=== PATIENT | male | born 1945 | race Caucasian/White ===

== ENCOUNTER → 2020-12-02 | Outpatient (CLI) | payer MEDICARE ==
--- NOTE | 2020-12-02 15:59 | PE ---
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 Images are reviewed on the computer in the coronal, a xial, and sagittal planes. Reconstructed rotating images are created on independent workstation and reviewed on the computer. A localization and attenuation correction CT is performed in conjunction with the PET scan. Dedicated PET/CT imaging of the neck. Blood glucose level equals 163. SCAN: Initial Scan FINDINGS: HEAD AND NECK: Asymmetric enlarged heterogeneous left submandibular mass measures 2.5 x 2.5 cm axial image 60 appears to be just posterior to the left submandibular gland at level of hyoid bone. max S UV is 6.78. Prominent but subcentimeter lymph node just posterior to this axial image 61. Remainder of the neck shows no suspicious hypermetabolic uptake. Primary oropharyngeal mass or neopla sm not clearly seen. Tiny roughly 4 to 5 mm hypermetabolic focus left lateral inferior tongue base ax ial image 52 has max SUV of 3.65. CHEST, MEDIASTINUM, AND HILAR REGION: No suspicious hypermetabolic uptake. ABDOMEN AND PELVIS: No suspicious hypermetabolic uptake. OSSEOUS STRUCTURES: No suspicious hypermetabolic uptake. OTHER CT: Mild to moderate three-vessel coronary artery calcification. Mild underlying emphysematous change. Cholecystectomy clips are present. Artifact from adjacent upper extremities is seen. Enlarged prostat e consistent with BPH. And mild to moderate disc space narrowing and spurring with vacuum disc phenom enon L3-L4 and L4-L5 levels. IMPRESSION: Abnormal uptake in the left submandibular lymph node. No metastatic disease is seen. Prim kris site of neoplasm not well visualized. Consider visualization inferior left lateral tongue base le josephine and/or oropharynx.
== END | disposition home or self-care (01) ==
LOC: RADPETMAIN 07:18
PROVIDERS: ATTEND Otolaryngology
DX: C76.0 Malignant neoplasm of head, face and neck (principal)
CPT/HCPCS: 78815; A9552

== ENCOUNTER → 2021-05-26 | Outpatient (CLI) | payer MEDICARE ==
--- NOTE | 2021-05-28 21:27 | PE ---
EXAMINATION TYPE: PET CT fusion skull to thigh DATE OF EXAM: 05/26/2021 COMPARISON: Prior PET/CT December 02, 2020 HISTORY: Head and neck cancer diagnosed November 25, 2020 TECHNIQUE: Following the intravenous administration of mCi of F-18 FDG, whole body images are perfo rmed from the skull base to the midthigh. Images are reviewed on the computer in the coronal, axial, and sagittal planes. Reconstructed rotating images are created on independent workstation and revie wed on the computer. A localization and attenuation correction CT is performed in conjunction with the PET scan. Dedicated PET/CT imaging of the neck is also performed. SCAN: Subsequent Scan FINDINGS: HEAD AND NECK: Prior visualized Asymmetric enlarged heterogeneous left submandibular mass now diffic ult to distinctly visualize, likely some residual tissue axial image 54 measuring approximately 2.2 x 1.0 cm decreased in size from prior study is currently ametabolic. No suspicious adjacent adenopathy current study. Mild uptake in right submandibular subcentimeter lymph nodes is nonspecific. No new hypermetabolic ad enopathy. Primary oropharyngeal mass or neoplasm not clearly seen similar to prior. CHEST, MEDIASTINUM, AND HILAR REGION: No new areas of suspicious hypermetabolic uptake. ABDOMEN AND PELVIS: No new areas of suspicious hypermetabolic uptake. OSSEOUS STRUCTURES: No new areas of suspicious hypermetabolic uptake. OTHER CT: Mild three-vessel coronary artery calcification. Mild underlying emphysematous change. Mild cardiomegaly. Cholecystectomy clips are present. Artifact from adjacent upper extremities is seen. Enlarged prostat e consistent with BPH. Mild to moderate disc space narrowing and spurring with vacuum disc phenomenon L3-L4 and L4-L5 levels. IMPRESSION: Complete positive treatment response left submandibular level. No definitive new areas of abnormal hypermetabolic uptake to suggest new metastatic malignancy.
== END | disposition home or self-care (01) ==
LOC: RADXRMAIN 10:47
PROVIDERS: ATTEND Internal Medicine Hematology & Oncology
DX: C08.0 Malignant neoplasm of submandibular gland (principal)
CPT/HCPCS: 78815; A9552

== ENCOUNTER → 2022-02-27 | Outpatient (CLI) | payer MEDICARE ==
[2022-02-27 10:47] LABS: Basophils # (A) 0.04 X 10*3/uL (0.00-0.10); Basophils % (A) 0.7 %; Eosinophils # (A) 0.23 X 10*3/uL (0.04-0.35); Eosinophils % (A) 4.2 %; HCT 49.3 % (39.6-50.0); HGB 16.5 g/dL (13.0-17.0); Immature Grans, Automated 0.7 %; Lymphocytes # (A) 1.52 X 10*3/uL (0.90-5.00); Lymphocytes % (A) 27.6 %; MCH 33.7 pg (27.0-32.0); MCHC 33.5 g/dL (32.0-37.0); MCV 100.6 fL (80.0-97.0); Mean Platelet Volume 9.5 fL (9.5-12.2); Monocytes # (A) 0.61 X 10*3/uL (0.20-1.00); Monocytes % (A) 11.1 %; NRBC Per 100 WBC 0 /100 WBCS (0.0-0.0); Neutrophils # (A) 3.07 X 10*3/uL (1.80-7.70); Neutrophils % (A) 55.7 %; Platelet Count 279 X 10*3/uL (140-440); RDW 13.5 % (11.5-14.5); WBC 5.51 X 10*3/uL (4.50-10.00)
[2022-02-27 11:07] LABS: ALT 29 U/L (10-49); AST 32 U/L (14-35); African American GFR (CKD) 75.2 (60.0-200.0); Albumin 4.6 g/dL (3.8-4.9); Albumin/Globulin Ratio 1.77 (1.60-3.17); Alkaline Phosphatase 61 U/L (41-126); BUN/Creat Ratio 15.36 Ratio (12.00-20.00); Blood Urea Nitrogen 16.9 mg/dL (9.0-27.0); Calcium 9.6 mg/dL (8.7-10.3); Carbon Dioxide 29.8 mmol/L (20.0-27.5); Chloride 101 mmol/L (96-109); Globulin 2.6 g/dL (1.6-3.3); Glucose 153 mg/dL (70-110); Non-African American GFR(CKD) 64.9 (60.0-200.0); Sodium 140 mmol/L (135-145); Total Protein 7.2 g/dL (6.2-8.2)
[2022-02-27 11:08] LABS: Chol/HDL Ratio 3.14 Ratio; LDL Cholesterol,Calculated 102.9 mg/dL (0.0-131.0); VLDL Calculation 15.68 mg/dL (5.00-40.00)
[2022-02-27 21:15] LABS: Urine Creatinine 93.3 mg/dL (39.0-259.0)
== END | disposition home or self-care (01) ==
LOC: LABWHC1 07:15
PROVIDERS: ATTEND Internal Medicine Geriatric Medicine
DX: E78.2 Mixed hyperlipidemia (principal); E11.65 Type 2 diabetes mellitus with hyperglycemia; N40.0 Benign prostatic hyperplasia without lower urinary tract symptoms; N18.9 Chronic kidney disease, unspecified
CPT/HCPCS: 36415; 80053; 80061; 82043; 82570; 83036; 84153; 85025

== ENCOUNTER → 2022-03-01 | Outpatient (CLI) | payer MEDICARE ==
[2022-03-01 10:14] LABS: African American GFR (CKD) >90 (>60 ml/min/1.73 sqM); Blood Urea Nitrogen 19 mg/dL (9-20); Non-African American GFR(CKD) 78 (>60 ml/min/1.73 sqM)
--- NOTE | 2022-03-01 11:13 | CT ---
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 Automated Exposure Control for Dose Reduction was Utilized. TECHNIQUE: CT scan of the thorax is performed without IV contrast. FINDINGS: LUNGS: Focal mild linear and slightly nodular scarring lateral right upper lobe axial image 25 is red emonstrated stable from initial PET/CT axial image 100. Focal mild linear scarring in both lung bases is again seen. No significant new greater than 5 mm pulmonary nodules or masses. There is no pleura l effusion or pneumothorax seen. The tracheobronchial tree is patent. MEDIASTINUM: Lack of IV contrast is noted to limit evaluation for mediastinal and especially hilar ad enopathy. There are no definitive greater than 1 cm hilar or mediastinal lymph nodes. No cardiomega ly or pericardial effusion is seen. Coronary artery calcification is redemonstrated. Enlarged main pu lmonary artery of 3.4 cm axial image 26 consistent with underlying pulmonary artery hypertension. The re is ascending aortic aneurysm measuring 4.4 cm adjacent to this. OTHER: Cholecystectomy clips are redemonstrated. Small low dense mass left adrenal gland axial image 62 consistent with benign lipid rich adenoma is redemonstrated. Some cortical thinning in both kidney s with few round small lesions, 1 being hyperdense axial image 69 favoring proteinaceous cyst is rede monstrated. Multilevel spurring in the thoracic spine redemonstrated. IMPRESSION: No suspicious new thoracic nodules or adenopathy to suggest metastatic disease.
--- NOTE | 2022-03-01 11:45 | CT ---
EXAMINATION TYPE: CT soft tissue neck w con DATE OF EXAM: 03/01/2022 HISTORY: Oropharynx cancer initially diagnosed in November 2020 COMPARISON: Prior PET/CT is May 26, 2021 and December 02, 2020 CT DLP: 759 mGycm. Automated Exposure Control for Dose Reduction was Utilized. TECHNIQUE: CT scan of the neck is performed with IV Contrast, patient injected with 100 ml mL of Iso daija 300, axial images are obtained, coronal and sagittal reformatted images are reviewed. FINDINGS: Airway: No gross abnormality seen. Parotid/submandibular glands: Asymmetric left parotid atrophy is redemonstrated. There is 10 x 7 mm o dayami circumscribed lesion inferior left parotid level axial image 30 likely corresponding to most rece nt PET/CT axial image 45 where was noted ametabolic perhaps treated adenopathy. Slight asymmetric atr ophy to the left submandibular gland is noted. No obvious recurrent mass at this level. There is prom inent but subcentimeter lymph nodes between the left submandibular gland in the carotid vessels on ax ial image 38 redemonstrated. There is better visualized fat planes at this level noted versus prior P ET/CT. Carotid/Vascular Structures: No significant abnormality. Osseous Structures: [id number] multilevel anterior spurring in the mid to lower cervical spin e . Moderate disc space narrowing C5-C6 and C6-C7 levels. Other: There is 4 mm right upper lobe nodule axial image 83 was present on prior PET CTs. IMPRESSION: No obvious new mass. No obvious new or enlarging greater than 1 cm adenopathy to suggest local neoplastic recurrence. Improved local subcutaneous edema from most recent prior PET/CT. Repeat PET/CT noted more sensitive to detect active neoplastic recurrence versus CT.
== END | disposition home or self-care (01) ==
LOC: RADCTMAIN 09:32
DX: C10.9 Malignant neoplasm of oropharynx, unspecified (principal); R60.9 Edema, unspecified; Z85.818 Personal history of malignant neoplasm of other sites of lip, oral cavity, and pharynx
CPT/HCPCS: 82565; 84520; 70491; 71250; 36415; Q9967

== ENCOUNTER → 2022-05-25 | Outpatient (CLI) | payer MEDICARE ==
--- NOTE | 2022-05-25 11:55 | CT ---
EXAMINATION TYPE: CT neck chest w con DATE OF EXAM: 05/25/2022 COMPARISON: Prior CT neck and chest March 01, 2022 and older studies. HISTORY: left sided lymph node removal. History of head and neck cancer. CT DLP: 1504 mGycm. Automated Exposure Control for Dose Reduction was Utilized. TECHNIQUE: CT scan of the neck and thorax are performed following with IV Contrast, patient injected with 125 mL of Isovue 300. FINDINGS: NECK: Airway: No gross abnormality seen. Parotid/submandibular glands: Asymmetric left parotid atrophy is redemonstrated. There is interval re moval of the 10 mm inferior left parotid circumscribed mass with some ill-defined fluid and fat stran ding and deep subcutaneous air focus at this level axial image 43 now present. Slight asymmetric atrophy to the left submandibular gland is redemonstrated. No obvious recurrent mas s at this level. There is prominent but subcentimeter lymph nodes between the left submandibular glan d and the carotid vessels on axial image 50 redemonstrated. This is not significantly changed from mo st recent CT. Carotid/Vascular Structures: No significant abnormality. Osseous Structures: [id number] multilevel anterior spurring in the mid to lower cervical spin e . Moderate disc space narrowing C5-C6 and C6-C7 levels is redemonstrated. CHEST: LUNGS: Focal mild linear and slightly nodular scarring lateral right upper lobe axial image 25 is red emonstrated stable from prior study. Approximate 4 mm right upper lobe nodule axial image 20 and is f airly stable in retrospect from prior study. Background mild underlying emphysematous change is redem onstrated. Focal mild linear scarring in both lung bases is again seen. No significant new greater th an 5 mm pulmonary nodules or masses. Slight nodular thickening along the right lung fissure axial criselda ge 40 centrally is stable from prior. There is no pleural effusion or pneumothorax seen. The tracheo bronchial tree is patent. MEDIASTINUM: Lack of IV contrast is noted to limit evaluation for mediastinal and especially hilar ad enopathy. There are no definitive greater than 1 cm hilar or mediastinal lymph nodes. No cardiomega ly or pericardial effusion is seen. Coronary artery calcification is redemonstrated. Enlarged main pu lmonary artery is redemonstrated. There is ascending aortic aneurysm measuring 4.4 cm redemonstrated. OTHER: Cholecystectomy clips are redemonstrated. Small low dense mass left adrenal gland axial image 60 consistent with benign lipid rich adenoma is redemonstrated. Some cortical thinning in both kidney s with few round small lesions, 1 being hyperdense left kidney axial image 66 favoring proteinaceous cyst is redemonstrated. Multilevel spurring in the thoracic spine redemonstrated. IMPRESSION: Interval surgical treatment of the suspicious inferior left parotid 1.0 cm nodule or poss ible lymph node. No suspicious new or enlarging nodules or lymph nodes to suggest new metastatic cale gnancy.
== END | disposition home or self-care (01) ==
LOC: RADCTMAIN 09:48
PROVIDERS: ATTEND Radiology Radiation Oncology
DX: C77.0 Secondary and unspecified malignant neoplasm of lymph nodes of head, face and neck (principal); C02.4 Malignant neoplasm of lingual tonsil; Z98.52 Vasectomy status; Z92.3 Personal history of irradiation; Z79.899 Other long term (current) drug therapy; Z87.891 Personal history of nicotine dependence
CPT/HCPCS: 82565; 84520; 70491; 71260; 36415; Q9967

== ENCOUNTER → 2022-10-16 | Outpatient (CLI) | payer MEDICARE ==
[2022-10-16 10:44] LABS: African American GFR (CKD) 76 (>60 ml/min/1.73 sqM); Blood Urea Nitrogen 18 mg/dL (9-20); Non-African American GFR(CKD) 66 (>60 ml/min/1.73 sqM)
--- NOTE | 2022-10-16 12:38 | CT ---
EXAMINATION TYPE: CT neck chest w con CT DLP: 1789 mGycm, Automated exposure control for dose reduction was used. DATE OF EXAM: 10/16/2022 11:34 AM COMPARISON: 05/25/2022. CLINICAL INDICATION:Male, 77 years old with history of C01 CANCER OF BASE OF TONGUE; TECHNIQUE: Standard enhanced CT of the neck and chest. Axial sections with coronal and sagittal refo rmats were obtained. Contrast used: (none if empty) Oral contrast used: (none if empty) FINDINGS: Brain: Visualized portions are grossly unremarkable. Orbits: Bilaterally aphakia. Sinuses: Grossly unremarkable. Spaces of the neck: No suspicious masses. The oral mucosa appear symmetric. The base of the tongue ap pears symmetrical. Musculoskeletal: No acute osseous pathology. Lymph nodes: There is a new prominent right neck lymph node measuring up to 11 mm in short axis. Vascular structures: Visualized major arteries are patent without evidence of aneurysm. Thoracic Inlet/airway: Airway is patent. The lung apices are clear. Soft tissues/Thyroid: Thyroid and remainder of the soft tissues are unremarkable. Other: none. LUNGS/ PLEURA: Scattered peripheral groundglass opacities throughout the lungs. No evidence of focal consolidation, pneumothorax or pleural effusion. Right lateral midlung nodular densities are stable. AIRWAY: Patent and unremarkable. HEART: Size within normal limits. Atherosclerosis of the arterial vasculature. There is coronary susan ry MEDIASTINUM: No gross evidence of adenopathy. VASCULATURE: No aortic aneurysm. There is a 4 vessel aortic arch. MUSCULOSKELETAL: No acute osseous abnormalities SOFT TISSUES/LYMPH NODES: Unremarkable. LOWER NECK: No significant findings. UPPER ABDOMEN: Adrenal gland nodules bilaterally are stable. Stable left renal hyperdense cyst withou t FDG activity on prior PET measuring 11 mm. The gallbladder surgically absent. IMPRESSION 1. New right neck lymph node measuring up to 11 mm in short axis at the level of the hyoid bone. Con employment coordinator follow-up PET/CT. Findings could relate to history cancer. The oral mucosa appears relatively s ymmetric. 2. Scattered, groundglass opacities throughout the lungs are new. Correlate for infectious/inflammat ory process such as atypical pneumonia. 3. Stable nodular densities the adrenal glands. 4. Stable left renal hyperdense cyst without FDG activity on prior PET
== END | disposition home or self-care (01) ==
LOC: RADCTMAIN 10:02
PROVIDERS: ATTEND Otolaryngology
DX: C01 Malignant neoplasm of base of tongue (principal); N28.1 Cyst of kidney, acquired; R91.8 Other nonspecific abnormal finding of lung field; J98.4 Other disorders of lung; Z85.810 Personal history of malignant neoplasm of tongue
CPT/HCPCS: 82565; 84520; 70491; 71260; 36415; Q9967

== ENCOUNTER → 2022-11-22 | Outpatient (CLI) | payer MEDICARE ==
[2022-11-22 16:42] LABS: ALT 31 U/L (10-49); AST 33 U/L (14-35); Albumin 4.4 d/dL (3.8-4.9); Albumin/Globulin Ratio 1.57 Ratio (1.60-3.17); Alkaline Phosphatase 59 U/L (41-126); BUN/Creat Ratio 13.27 Ratio (12.00-20.00); Blood Urea Nitrogen 14.6 mg/dL (9.0-27.0); Calcium 9.6 mg/dL (8.7-10.3); Carbon Dioxide 25.7 mmol/L (21.6-31.8); Chloride 100 mmol/L (96-109); Chol/HDL Ratio 2.41 Ratio; Globulin 2.8 d/dL (1.6-3.3); Glucose 143 mg/dL (70-110); Potassium 4.7 mmol/L (3.5-5.5); Sodium 138 mmol/L (135-145); Total Bilirubin 0.6 mg/dL (0.3-1.2); Total Protein 7.2 d/dL (6.2-8.2); VLDL Calculation 13.78 mg/dL (5.00-40.00)
[2022-11-22 17:06] LABS: HCT 45.6 % (39.6-50.0); HGB 15.5 d/dL (13.0-17.0); MCH 33.1 pg (27.0-32.0); MCV 97.4 FL (80.0-97.0); NRBC Per 100 WBC 0 X 10*3/uL (0.00-0.01); Platelet Count 288 X 10*3/uL (140-440); RBC 4.68 X 10*6/uL (4.40-5.60); RDW 14.1 % (11.5-14.5); WBC 6.12 X 10*3/uL (4.50-10.00)
== END | disposition home or self-care (01) ==
LOC: LABWHC1 08:19
PROVIDERS: ATTEND Internal Medicine Geriatric Medicine
DX: N18.9 Chronic kidney disease, unspecified (principal); E11.65 Type 2 diabetes mellitus with hyperglycemia; E11.22 Type 2 diabetes mellitus with diabetic chronic kidney disease
CPT/HCPCS: 36415; 80053; 80061; 83036; 84443; 85027

== ENCOUNTER → 2022-12-26 | Outpatient (CLI) | payer MEDICARE ==
[2022-12-26 10:07] LABS: African American GFR (CKD) 85 (>60 ml/min/1.73 sqM); Blood Urea Nitrogen 20 mg/dL (9-20); Non-African American GFR(CKD) 73 (>60 ml/min/1.73 sqM)
--- NOTE | 2022-12-26 11:14 | CT ---
EXAMINATION TYPE: CT soft tissue neck w con CT DLP: 691.60 mGycm, Automated exposure control for dose reduction was used. DATE OF EXAM: 12/26/2022 10:46 AM COMPARISON: CT neck chest 10/16/2022, 05/25/2022, CT neck 03/01/2022, PET/CT 05/26/2021. CLINICAL INDICATION:Male, 77 years old with history of C76.0 HEAD NECK CA, Z03.89 suspect mets; PHH, Head/neck cancer cancer, suspect mets TECHNIQUE: Standard enhanced CT of the neck following intravenous administration of 100 cc of Isovue 300. Axial sections with coronal and sagittal reformats were obtained. FINDINGS: Brain: Visualized portions are grossly unremarkable. Orbits: Bilateral aphakia. Sinuses: Grossly unremarkable. Suprahyoid Neck: The oropharynx, oral cavity, parapharyngeal and retropharyngeal spaces are clear and symmetric. The nasopharynx is unremarkable. Infrahyoid Neck: The larynx, hypopharynx, and supraglottic area are clear and symmetric. Parotid Glands: Right parotid gland appears unremarkable. Atrophy/postsurgical change of the left par otid gland again demonstrated. Submandibular Glands: Right submandibular gland appears unremarkable. Atrophy of the left submandibul ar gland again demonstrated. Musculoskeletal: No acute osseous pathology. Degenerative changes of the cervical spine. No aggressiv e osseous lesion. Lymph nodes: Stable enlarged right submandibular lymph node node at level of the high bone measuring 1.1 cm short axis (series 3, image 54). Decreased left subareolar lymph node measuring 0.5 cm in anais rt axis, previously 0.6 cm short axis (series 3, image 55). No new or enlarging lymph nodes. Vascular structures: Visualized major arteries are patent without evidence of aneurysm. Thoracic Inlet/airway: Airway is patent. The lung apices are clear. Mild centrilobular emphysematous changes. Soft tissues/Thyroid: Thyroid and remainder of the soft tissues are unremarkable. Other: none. IMPRESSION 1. Stable right submandibular lymph node measuring 1.1 cm short axis with decreased size of left subm ental lymph node measuring 0.5 cm short axis, previously 0.6 cm. No new or enlarging lymph nodes. 2. Post treatment changes of the inferior left parotid gland without definitive evidence for local re currence.
== END | disposition home or self-care (01) ==
LOC: RADCTMAIN 09:24
PROVIDERS: ATTEND Internal Medicine Hematology & Oncology
DX: Z03.89 Encounter for observation for other suspected diseases and conditions ruled out (principal); C76.0 Malignant neoplasm of head, face and neck; K11.8 Other diseases of salivary glands; R59.0 Localized enlarged lymph nodes
CPT/HCPCS: 82565; 84520; 70491; 36415; Q9967

== ENCOUNTER → 2023-03-12 | Outpatient (CLI) | payer MEDICARE ==
[2023-03-12 12:39] LABS: African American GFR (CKD) 84 (>60 ml/min/1.73 sqM); Blood Urea Nitrogen 25 mg/dL (9-20); Non-African American GFR(CKD) 72 (>60 ml/min/1.73 sqM)
--- NOTE | 2023-03-12 14:50 | CT ---
EXAMINATION TYPE: CT neck chest w con DATE OF EXAM: 03/12/2023 COMPARISON: 12/26/2022 HISTORY: Hx throat ca CT DLP: 1686.20 mGycm CONTRAST: Patient injected with 100 mL of Isovue 370. TECHNIQUE: Axial images at 3 mm thick sections. Reconstructed images in the coronal plane and sagitt al plane are reviewed. FINDINGS: Limited CT sections are obtained the lung apices. The lung apices appear clear. CT neck: The torus tubarius and fossa of Rosenmuller are normal. Manufacturing Weaver spaces are normal. Para nasal sinuses and mastoid air cells are clear. Left parotid gland is resected. Right parotid gland appears unremarkable. Right submandibular gland i s unremarkable. Left submandibular gland may have some mild atrophy. Parapharyngeal spaces are normal . No suspicious adenopathy is evident. There are a few scattered small lymph nodes present bilateral ly. The hypopharynx appears within normal limits. Epiglottis appears normal. Vocal cord level appears sym metrical. Prevertebral space is normal. Anterior vertebral body spurring is noted within the cervical spine. Thyroid as visualized is normal. IMPRESSION: 1. No suspicious acute changes to suggest recurrent or metastatic throat cancer. EXAMINATION TYPE: CT neck chest w con DATE OF EXAM: 03/12/2023 COMPARISON: 12/30/2022 HISTORY: Hx throat ca CT DLP: 1686.20 mGycm, Automated exposure control for dose reduction was used. CONTRAST: Performed injected with 100 mL of Isovue 370. TECHNIQUE: Axial images were obtained at 5 mm thick sections. Reconstructed images are reviewed on [employer] computer in the coronal plane. FINDINGS: Portion of the thyroid visualized is normal. Couple of tiny stable nodules appear to be within the major fissure on the right, series 6 image 24. No suspicious lung nodules evident. No consolidations or infiltrates. No enlarged mediastinal or hilar adenopathy is evident. The ascending aorta diameter at the level o f the main pulmonary artery is 4.3 cm. The main pulmonary artery diameter at the bifurcation is 3.[address] sections are obtained through the upper abdomen. Abdomen is essentially unremarkable. IMPRESSION: 1. Ascending thoracic aortic aneurysm measuring 4.3 cm. 2. No suspicious changes to suggest metastatic disease.
== END | disposition home or self-care (01) ==
LOC: RADCTMAIN 12:08
PROVIDERS: ATTEND Internal Medicine Hematology & Oncology
DX: I71.21 Aneurysm of the ascending aorta, without rupture (principal); C76.0 Malignant neoplasm of head, face and neck; E11.9 Type 2 diabetes mellitus without complications; I10 Essential (primary) hypertension; Z71.3 Dietary counseling and surveillance
CPT/HCPCS: 82565; 84520; 70491; 71260; 36415; Q9967

== ENCOUNTER 2023-05-08 08:59 | Day surgery (SDC) | payer MEDICARE ==
--- NOTE | 2023-05-06 14:17 | P.HPOR ---
History of Present Illness H&P Date: 05/06/23 Subjective: This is a 77 year old male that presents today for initial evaluation regarding a one month history of an inability to extend the small finger. He denies any injury or inciting event. He states it is not painful but it often gets in the way when trying to put his hands in his pockets or trying to work or do any type of manual labor. He notes pain with twisting motion of the wrist at the dorsum of the hand intermittently. Physical Examination: RUE: AIN/PIN/Radial/Ulnar/Median motor intact. Radial/Ulnar/Median SILT. 2+/4 Radial/Ulnar pulses palpated. 5/5 APB, 5/5 FDI. Negative Finkelsteins, negative CMC grind, negative Durkan's compression. Unable to actively extend the small finger against gravity. 30 extension leg of the MCP joint of the small finger. Imaging: X-Rays of the right hand 3V taken in office today demonstrates advanced degenerative changes at the DRUJ, SLAC wrist deformity. Advanced degenerative changes at the index and middle finger MCP joints. Spurring/osteophyte formation present over dorsal DRUJ. 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 We discussed he likely has rupture of the small finger extensor tendon due to dorsal bone spurring from his severe distal radioulnar joint arthritis. We discussed this would likely require a tendon transfer and addressing the DRUJ arthritis with a distal ulna resection to prevent recurrence.The patient was agreeable with this plan. He is scheduled for a right hand extensor tendon tendon transfer and distal ulna resection. Risks and benefits of surgery including bleeding, infection, damage to surrounding tissue, need for further surgery, residual numbness were discussed and the patient wished to go forward with surgery. -Juan David Johnson DO Orthopedic Hand/Upper Extremity Surgeon Past Medical History Past Medical History: Cancer, Diabetes Mellitus, GERD/Reflux, Hyperlipidemia, Hypertension, Renal Disease, Sleep Apnea/CPAP/BIPAP Additional Past Medical History / Comment(s): oropharyngeal cancer diagnosis - July 2021, had chemo and radation. kidney stones, no cpap since cancer History of Any Multi-Drug Resistant Organisms: None Reported Past Surgical History: Adenoidectomy, Appendectomy, Cholecystectomy, Tonsillectomy Additional Past Surgical History / Comment(s): oropharyngeal surgery x2 for Cancer, vasectomy, Past Anesthesia/Blood Transfusion Reactions: No Reported Reaction Additional Past Anesthesia/Blood Transfusion Reaction / Comment(s): slow to wake up Smoking Status: Never smoker - Past Family History Father Family Medical History: Cancer Additional Family Medical History / Comment(s): lung cancer Medications and Allergies Home Medications Medication Instructions Recorded Confirmed Type Citalopram Hydrobromide 40 mg PO DAILY 04/04/22 05/03/23 History [Citalopram HBr] Furosemide [Lasix] 20 mg PO DAILY 04/04/22 05/03/23 History Insulin NPH Hum/Reg Insulin Hm 1 unit SQ DAILY 04/04/22 05/03/23 History [Novolin 70-30 100 Unit/ml Vial] Meloxicam [Mobic] 7.5 mg PO DAILY 04/04/22 05/03/23 History Omeprazole [PriLOSEC] 20 mg PO DAILY 04/04/22 05/03/23 History Potassium Chloride [Klor-Con M10] 10 meq PO DAILY 04/04/22 05/03/23 History Tamsulosin [Flomax] 0.4 mg PO DAILY 04/04/22 05/03/23 History lisinopriL 40 mg PO DAILY 04/04/22 05/03/23 History Atorvastatin [Lipitor] 10 mg PO HS 05/03/23 05/03/23 History Magensium 500 mg PO DAILY 05/03/23 05/03/23 History Multivitamins, Thera [Multivitamin 1 tab PO DAILY 05/03/23 05/03/23 History (formulary)] Pilocarpine [Salagen] 1 tab PO DAILY 05/03/23 05/03/23 History Prevagen 1 tab PO DAILY 05/03/23 05/03/23 History Allergies Allergy/AdvReac Type Severity Reaction Status Date / Time nickel Allergy Rash/Hives Verified 05/03/23 09:33 Physical Examination Osteopathic Statement: *. No significant issues noted on an osteopathic structural exam other than those noted in the History and Physical/Consult.
[~2023-05-08 08:59] MED LIST: DEXAMETHASONE SOD PHOSPHATE 4 MG/ML 1 ML VIAL IV ONE; LACTATED RINGERS 1,000 ML IV SCH
[2023-05-08] MEDS: LACTATED RINGERS 1,000 ML IV ONE ×3 (10:09→12:27)
[2023-05-08 10:10] LABS: Glucose,Whole Blood 117 mg/dL (70-110)
[2023-05-08] MEDS ORDERED: ONDANSETRON 4 MG/2 ML VIAL ONE (10:13)
[2023-05-08] MEDS: MIDAZOLAM 2 MG/2 ML VIAL IVP ONE ×2 (10:22→10:24)
[2023-05-08] MEDS: ONDANSETRON 4 MG/2 ML VIAL IVP ONE (10:33)
--- NOTE | 2023-05-08 10:39 | P.ANPRN ---
Procedure Note - Anesthesia - Nerve Block Performed Right Infraclavicular Single Date of Procedure: 05/08/23 Procedure Start Time: : Procedure Stop Time: : Location of Patient: PreOp Indication: Requested by Surgeon Specifically requested for management of pain by DrElma: Juan David Johnson Sedation Type: Sedate with meaningful contact maintained Preparation: Sterile Prep Position: Supine Needle Gauge: 21 Ultrasound used to visualize needle placement: Yes Ultrasound used to observe medication spread: Yes Injectate: 0.5% Ropivacaine (see comment for volume) Blood Aspirated: No Pain Paresthesia on Injection Noted: No Resistance on Injection: Normal Image Stored and Saved: Yes Events: Uneventful and Well Tolerated
[2023-05-08] MEDS ORDERED: MIDAZOLAM 2 MG/2 ML VIAL ONE (10:44)
[2023-05-08] MEDS ORDERED: fentaNYL (PF) 50 MCG/ML 2 ML AMP ONE (10:44)
[2023-05-08] MEDS ORDERED: ROPIVACAINE 5 MG/ML 30 ML VIAL ONE (10:44)
[2023-05-08] MEDS ORDERED: PROPOFOL 10 MG/ML 20 ML VIAL IV ONE (10:44)
[2023-05-08] MEDS ORDERED: LIDOCAINE 1% INJ 10MG/ML (20 ML MDV) ONE (10:44)
[2023-05-08] MEDS ORDERED: ePHEDrine 50 MG/ML 1 ML VIAL ONE (10:44)
[2023-05-08] MEDS ORDERED: DEXAMETHASONE SOD PHOSPHATE 4 MG/ML 1 ML VIAL ONE (10:44)
[2023-05-08] MEDS ORDERED: PHENYLEPHRINE 10 MG/ML VIAL ONE (10:44)
[2023-05-08 13:24] VITALS: TEMP 96.9
[2023-05-08] MEDS: HYDROmorphone 0.5 MG/0.5 ML SYRINGE IVP PRN (13:30)
[2023-05-08 14:23] LABS: Glucose,Whole Blood 145 mg/dL (70-110)
[2023-05-08 15:11] VITALS: BP 130/76; PULSE 80; RESP 18
--- NOTE | 2023-05-08 17:35 | P.OP ---
Date of Procedure: 05/08/23 Preoperative Diagnosis: 1.) Right wrist DRUJ arthritis 2.) Right Extensor digiti minimi tendon rupture at level of wrist 3.) Right Extensor digitorum communis tendon to the right small finger rupture at the level of the wrist 4.) Right Extensor digitorum communis tendon to the right ring finger partial attritional rupture at the level of the wrist. 5.) Right Extensor tenosynovitis Postoperative Diagnosis: 1.) Right wrist DRUJ arthritis 2.) Right Extensor digiti minimi tendon rupture at level of wrist 3.) Right Extensor digitorum communis tendon to the right small finger rupture at the level of the wrist 4.) Right Extensor digitorum communis tendon to the right ring finger partial attritional rupture at the level of the wrist. 5.) Right Extensor tenosynovitis Procedure(s) Performed: 1.) Right wrist distal ulna resection (02824) 2.) Right Extensor indicis proprious to extensor digiti minimi tendon transfer at level of carpal/metacarpal area (46765) 3.) Right Extensor digitorum communis tendon to the right small finger tendon transfer to right ring finger extensor digitorum communis to ring finger at level of carpal/metacarpal area (62668) 4.) Right Extensor digitorum communis tendon to the right ring finger partial attritional rupture direct repair at level of carpal/metacarpal area (70233) 5.) Right Extensor tenosynovectomy of 4th dorsal compartment (86603) 6.) Right wrist extensor carpi ulnaris tendon transfer to distal ulnar for distal ulna stump stabilization (20244) Anesthesia: regional Surgeon: Juan David Johnson Hay Rake Operator #1: Michi Peñaloza Estimated Blood Loss (ml): 30 Pathology: none sent Condition: stable Disposition: PACU Description of Procedure: This is a 77 year old male who presents today for surgical intervention for severe right DRUJ arthritis causing multiple attritional extensor tendon ruptures. Risks and benefits of surgery were discussed with the patient including bleeding, damage to surrounding tissue, infection, need for further surgery as well as risks of anesthesia including pulmonary embolism and even and the patient wished to proceed with surgical intervention. The patient was seen in the pre-operative area by myself. Consent and H&P were completed and updated. The correct extremity was marked in the pre-operative area by myself and all other questions were answered. Operative Narrative: The patient was brought to the operating room by the department of иван gan. They remained on the portable stretcher and a rolling hand table was brought to the side of the operative extremity. Pre-operative time out was performed indicating the correct patient, procedure and laterality. All in the room agreed. Pre-operative antibiotics were given prior to skin incision. The patient was then drifted off to sleep by the department of anesthesia. A nonsterile tourniquet was then applied to the operative extremity and the right upper extremity was then prepped and draped in normal sterile fashion. The operative extremity was the exsanguinated with an esmarch bandage and the tourniquet was inflated to 250mmHg. A longitudinal incision was made over the dorsal ulnar aspect overlying the ulnar head. Blunt dissection was taken down through subcutaneous tissues taking care to provide protection to the dorsal ulnar sensory branch nerves. The ECU tendon sheath was then opened to reveal the distal ulnar head which appeared very arthritic with large sharp dorsal osteophytes present. Rufina retractors were placed both ulnarly and radially and a microsaggital saw was used to resect the distal 2cm's of the ulnar head which was then excised. Attention was then d rawn to the ECU tendon. A distally based strip of the ECU tendon was made with a 15 blade scalpel approximately 5cm in length. A 2.7mm drill bit was then used to make a tunnel through the medullary canal and out the dorsal radial portion of the ulnar stump. The distally based ECU tendon strip was then transferred and tunneled through the drill hole and then shuttled back distally and sutured to itself with 2-0 ethibond suture to stabilize the distal ulna to prevent radial translation/impingement. The wound was then irrigated thoroughly and the periosteal sleeve over the ulna was closed with monocryl suture. Attention was then drawn distally and radially. The Longitudinal incision was extended distally towards the small finger MCP joint. Dissection was then carried radially subcutaneously to reveal extensive hypertrophic extensor tenosynovial tissue which was present around all of the fourth dorsal extensor compartment tendons. Extensive tenosynovectomy was performed of the fourth do rsal compartment with 15 blade scapel. Further dissection revealed that there was complete attritional rupture of the extensor digiti minimi tendon, the extensor digitorum communis tendon to the small finger, and a 40% with partial attritional rupture of the extensor digitorum communis tendon to the ring finger. 2-0 ethibond suture was used to perform a direct repair of the ring finger EDC tendon to the remaining intact 60% with multiple interrupted figure of 8 sutures followed by a running stitch to complete the EDC to the ring finger tendon repair. The EDC to the small finger distally based tendon end was freshly cut and then a pulvertaft weave was performed to transfer the EDC to the small finger to the neighboring EDC to the ring finger tendon with appropriate tension. This was secured with 3 pulvertaft weaves and held with multiple interrupted 2-0 ethibond sutures. Attention was then brought to the MCP joint of the index finger. A transverse incision was made just proximal to the MCP joint. The extensor indicis proprious tendon was identified just ulnar to the EDC to the index finger tendon. The EIP tendon was then transversely transected with 15 blade scapel and junctura te ndinae attatchments were also released to allow for tendon excursion for the transfer. The EIP tendon was then tunneled ulnarly and a connected to the distal stump of the extensor digiti minimi tendon in a 3 pass pulvertaft weave secured with multiple figure of 8 2-0 ethibond sutures under good tension with the finger fully and slightly hyperextended in anticipation of the repair stretching out in the following weeks. The resting posture of the hand was now restored with finger extension with no lag of the small finger. The wound was then irrigated with sterile saline. Bovie Cautery was used for meticulous hemostasis. Skin closure was performed with 3-0 monocryl followed by skin closure with 4-0 nylon suture. Sterile dressing consisting of adaptic, 4x4s, and a volar and dorsal plaster splint was applied. Tourniquet was let down and the hand had immediate perfusion. The patient was then woken by the department of anesthesia and transferred to PACU in stable condition. Michi HASTINGS was present for the case and assisted in major portions of the operation including protection of vital neurovascular structures with retracting and manipulation of the extremity and assistance in tensioning the tendon transfer. Juan David Johnson DO Orthopedic Hand/Upper Extremity Surgeon
== END 2023-05-08 15:27 | disposition home or self-care (01) ==
LOC: OR 08:59
PROVIDERS: ATTEND Orthopaedic Surgery Hand Surgery
DX: M19.031 Primary osteoarthritis, right wrist (principal); E11.9 Type 2 diabetes mellitus without complications; E78.5 Hyperlipidemia, unspecified; G47.33 Obstructive sleep apnea (adult) (pediatric); I10 Essential (primary) hypertension; K21.9 Gastro-esophageal reflux disease without esophagitis; Z79.1 Long term (current) use of non-steroidal anti-inflammatories (NSAID); Z79.4 Long term (current) use of insulin; Z85.818 Personal history of malignant neoplasm of other sites of lip, oral cavity, and pharynx; Z90.49 Acquired absence of other specified parts of digestive tract; Z79.899 Other long term (current) drug therapy
CPT/HCPCS: 64415; 25116; 26480; 26410; 26474; J2250; J1100; J0690; J2405; J2001; J3010; J2795; J2704; J1170; J2371

== ENCOUNTER → 2023-12-24 | Outpatient (CLI) | payer MEDICARE ==
--- NOTE | 2023-12-24 10:43 | CT ---
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 Reconstructed images are reviewed on [employer] computer in the coronal plane. Contrast used: mL of , (none if empty) Oral contrast used: (none if empty) CT DLP: 604.00 mGycm, Automated exposure control for dose reduction was used. FINDINGS: Portion of the thyroid visualized is normal. No suspicious lung nodules or focal infiltrates are present. Tracheobronchial tree appears normal wit hin the [id number] No enlarged mediastinal or hilar adenopathy is evident. The ascending aorta diameter at the level o f the main pulmonary artery is 4.6 cm. The main pulmonary artery diameter at the bifurcation is 3.[address] sections are obtained through the upper abdomen. Abdomen is essentially unremarkable. IMPRESSION: 1. No suspicious changes to suggest metastatic disease within the chest. [facility], , 12/24/2023 10:40 AM
== END | disposition home or self-care (01) ==
LOC: RADCTMAIN 09:43
PROVIDERS: ATTEND Internal Medicine Hematology & Oncology
DX: C76.0 Malignant neoplasm of head, face and neck (principal); E11.9 Type 2 diabetes mellitus without complications; I10 Essential (primary) hypertension; Z71.3 Dietary counseling and surveillance
CPT/HCPCS: 71250

== ENCOUNTER → 2024-02-29 | Outpatient (CLI) | payer MEDICARE ==
[2024-02-29 14:53] LABS: Basophils # (A) 0.03 X 10*3/uL (0.00-0.10); Basophils % (A) 0.6 %; Eosinophils # (A) 0.24 X 10*3/uL (0.04-0.35); HCT 45.7 % (39.6-50.0); HGB 15.6 g/dL (13.0-17.0); Lymphocytes # (A) 1.19 X 10*3/uL (0.90-5.00); Lymphocytes % (A) 24.7 %; MCH 33.1 pg (27.0-32.0); MCHC 34.1 g/dL (32.0-37.0); Mean Platelet Volume 9.5 FL (9.5-12.2); Monocytes # (A) 0.54 X 10*3/uL (0.20-1.00); Monocytes % (A) 11.2 %; NRBC Per 100 WBC 0 X 10*3/uL (0.00-0.01); Neutrophils # (A) 2.81 X 10*3/uL (1.80-7.70); Neutrophils % (A) 58.3 %; Platelet Count 240 X 10*3/uL (140-440); RBC 4.71 X 10*6/uL (4.40-5.60); RDW 13.3 % (11.5-14.5); WBC 4.82 X 10*3/uL (4.50-10.00)
[2024-02-29 15:19] LABS: ALT 28 U/L (10-49); AST 33 U/L (14-35); Albumin 4.2 g/dL (3.8-4.9); Albumin/Globulin Ratio 1.75 Ratio (1.60-3.17); Alkaline Phosphatase 59 U/L (41-126); Blood Urea Nitrogen 28.8 mg/dL (9.0-27.0); Calcium 9.1 mg/dL (8.7-10.3); Carbon Dioxide 26.9 mmol/L (21.6-31.8); Chloride 99 mmol/L (96-109); Chol/HDL Ratio 2.55 Ratio; Globulin 2.4 g/dL (1.6-3.3); Glucose 145 mg/dL (70-110); LDL Cholesterol,Calculated 64.3 mg/dL (0.0-131.0); Potassium 4.4 mmol/L (3.5-5.5); Sodium 144 mmol/L (135-145); T4, Free (Free Thyroxine) 1.05 ng/dL (0.80-1.80); Total Bilirubin 0.6 mg/dL (0.3-1.2); Total Protein 6.6 g/dL (6.2-8.2); Uric Acid 6.6 mg/dL (3.7-8.7); VLDL Calculation 11.14 mg/dL (5.00-40.00)
[2024-02-29 18:57] LABS: Microalbumin Creatinine Ratio <12 mg/g Cr (0-30); Urine Creatinine 98.9 mg/dL (39.0-259.0)
== END | disposition home or self-care (01) ==
LOC: LABWHC1 07:52
PROVIDERS: ATTEND Internal Medicine Geriatric Medicine
DX: Z00.00 Encounter for general adult medical examination without abnormal findings (principal); E11.22 Type 2 diabetes mellitus with diabetic chronic kidney disease; E78.2 Mixed hyperlipidemia; E03.9 Hypothyroidism, unspecified; N18.2 Chronic kidney disease, stage 2 (mild)
CPT/HCPCS: 36415; 80053; 80061; 82043; 82570; 83036; 84439; 84443; 84550; 85025

== ENCOUNTER → 2024-06-29 | Outpatient (CLI) | payer MEDICARE ==
[2024-06-29 12:33] LABS: African American GFR (CKD) 78 (>60 ml/min/1.73 sqM); Blood Urea Nitrogen 27 mg/dL (9-20); Non-African American GFR(CKD) 67 (>60 ml/min/1.73 sqM)
--- NOTE | 2024-06-29 13:16 | CT ---
EXAMINATION TYPE: CT neck chest w con CT DLP: 2014.6 mGycm, Automated exposure control for dose reduction was used. DATE OF EXAM: 06/29/2024 1:00 PM COMPARISON: CT chest 12/24/2023, 03/01/2022, CT neck chest 03/12/2023, CT soft tissue neck 12/26/2022, 01/2023, CT neck chest 10/16/2022, 05/25/2022, PET/CT 05/26/2021, 12/02/2020. CLINICAL INDICATION:Male, 78 years old with history of Z98.890 OTHER SPECIFIED POSTPROCEDURAL STATES; , neck ca TECHNIQUE: Standard enhanced CT of the neck and chest. Axial sections with coronal and sagittal refo rmats were obtained. Contrast used:100 mL of Isovue 300 with IV Contrast Oral contrast used: None FINDINGS: Brain: Visualized portions are grossly unremarkable. Orbits: Bilateral aphakia. Sinuses: Grossly unremarkable. Suprahyoid Neck: The oropharynx, oral cavity, parapharyngeal and retropharyngeal spaces are clear and symmetric. The nasopharynx is unremarkable. Infrahyoid Neck: The larynx, hypopharynx, and supraglottic area are clear and symmetric. Parotid Glands: Right parotid gland appears unremarkable. Atrophy/postsurgical change of the left par otid gland again demonstrated. Submandibular Glands: Right submandibular gland appears unremarkable. Atrophy of the left submandibul ar gland again demonstrated. Musculoskeletal: No acute osseous pathology. Degenerative changes of the cervical spine. No aggressiv e osseous lesion. Lymph nodes: No pathologically enlarged lymph nodes greater than 1 cm short axis. Vascular structures: Visualized major arteries are patent without evidence of aneurysm. Soft tissues/Thyroid: Thyroid and remainder of the soft tissues are unremarkable. Other: none. LUNGS/ PLEURA: No pleural effusion, pneumothorax, focal consolidation. Minimal linear scarring within the left lung base. Stable posterior right upper lobe 3.8 mm solid pulmonary nodule (series 6, image 27). No new or enlarging pulmonary nodules. Mild background centrilobular emphysematous changes. AIRWAY: Patent and unremarkable. HEART: Size within normal limits. No pericardial effusion. Minimal coronary arterial calcifications. MEDIASTINUM: No gross evidence of adenopathy. VASCULATURE: Stable aneurysmal dilatation of the aortic root measuring up to 4.8 cm and of the ascen ding thoracic aorta measuring up to 4.5 cm. Four-vessel aortic arch. Minimal atherosclerotic calcific ation of the aortic arch. MUSCULOSKELETAL: No acute osseous abnormalities. Mild multilevel degenerative disc disease. No aggres sive osseous lesion. SOFT TISSUES/LYMPH NODES: Unremarkable. LOWER NECK: No significant findings. UPPER ABDOMEN: Gallbladder is surgically absent. 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 No follow-up recommended. IMPRESSION: 1. No evidence to suggest recurrent/metastatic disease. 2. Stable right upper lobe 3.8 mm pulmonary nodule from multiple prior exams. Considered benign. No n ew or enlarging pulmonary nodules. 3. 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 [facility], , 06/29/2024 1:14 PM
== END | disposition home or self-care (01) ==
LOC: RADCTMAIN 11:32
PROVIDERS: ATTEND Student in an Organized Health Care Education/Training Program
DX: R91.1 Solitary pulmonary nodule (principal); I71.21 Aneurysm of the ascending aorta, without rupture; Z98.890 Other specified postprocedural states
CPT/HCPCS: 82565; 84520; 70491; 71260; 36415; Q9967